=== PATIENT | male | born 1995 | race African-American/Black ===

== ENCOUNTER 2024-07-22 15:18 | Emergency (ER) | payer OTHER, BC, SELFPAY ==
[2024-07-22 15:41] VITALS: BP 116/66; PULSE 51; RESP 16; TEMP 36.8; O2SAT 100
--- NOTE | 2024-07-22 15:59 | ED.BURNSMOKE ---
HPI - Burn/Smoke Inhalation General Chief complaint: Burn/Smoke Inhalation Stated complaint: Burn/Right Arm Time Seen by Provider: 07/22/24 15:59 Source: patient Mode of arrival: ambulatory Limitations: no limitations History of Present Illness HPI Narrative: 28 yo M presents with burn wound to R forearm. Burnt himself last night while at work. Works at [employer] and burnt himself with miah cheese. blisters intact. Tetanus UTD. CMS intact. All systems reviewed and negative except as noted above. Related Data Allergies Allergy/AdvReac Type Severity Reaction Status Date / Time No Known Allergies Allergy Unverified 10/13/17 17:35 Review of Systems Review of Systems: CONSTITUTIONAL: Denies fever, chills, or sweats. EYES: Denies visual changes, redness, or discharge. ENT: Denies rhinorrhea, congestion, sore throat, or otalgia. CARDIOVASCULAR: Denies chest pain, palpitations, or edema. RESPIRATORY: Denies cough or dyspnea. GASTROINTESTINAL: Denies abdominal pain, nausea, vomiting, or diarrhea. GENITOURINARY: Denies dysuria or hematuria. SKIN: Denies rash or itching. reports burn wound to R forearm MUSCULOSKELETAL: Denies back pain, joint pain, or myalgia. NEUROLOGIC: Denies headache, numbness, or weakness. PSYCHIATRIC: Denies anxiety or depression. All other systems reviewed are negative, except as documented in HPI. PMFSH Comments At time of signature, agree with nursing past medical, surgical, social and family history. There is no relevant family history pertinent to the presenting complaint. Exam Narrative: GENERAL: This is a well-nourished, well-developed patient, in no apparent distress. HEAD: normocephalic, atraumatic. EYES: PERRL. Sclera clear/white. Vision is grossly intact. EARS: External ears normal NOSE: External nose normal NECK: Neck supple, non-tender without lymphadenopathy, masses or thyromegaly. CARDIOVASCULAR: Regular rate and rhythm without murmurs, gallops, or rubs. RESPIRATORY: Clear to auscultation. Breath sounds equal bilaterally. No wheezes, rales, or rhonchi. SKIN: warm, Dry, intact with no suspicious lesions or rash, good texture and turgor. second degree burn to R forearm approx. 6 x 4cm blister NEURO: awake, alert, and oriented to person, place and time. There were no obvious focal neurologic abnormalities. EXTREMITIES: No joint tenderness, effusion, or edema noted. Course Course Level of Care: Express Care Visit Vital Signs Vital signs: Vital Signs Temperature 36.8 C 07/22/24 15:41 Pulse Rate 51 L 07/22/24 15:41 Respiratory Rate 16 07/22/24 15:41 Blood Pressure 116/66 07/22/24 15:41 Pulse Oximetry 100 07/22/24 15:41 Oxygen Delivery Room Air 07/22/24 15:41 Temperature 36.8 C 07/22/24 15:41 Pulse Rate 51 L 07/22/24 15:41 Respiratory Rate 16 07/22/24 15:41 Blood Pressure 116/66 07/22/24 15:41 Pulse Oximetry 100 07/22/24 15:41 Oxygen Delivery Room Air 07/22/24 15:41 Reviewed MDM - Burn/Smoke Inhalation MDM Narrative Medical decision making narrative: Silvadene and dressing applied by RN. Tetanus is up-to-date. [facility] intact. Please be advised this is a medical document. It is intended for nbyx-yy-wvzu communication. It is written in medical language and may contain unfamiliar abbreviations or verbiage. Medical documents are intended to carry relevant information, facts as evident, and the clinical opinion of the practitioner at the time of the encounter. This report may have been done utilizing a voice recognition system. Attempts have been made to correct errors. However, there may be uncorrected grammatical, spelling, and recognition errors present. The file time of this note does not necessarily represent the time of service. Discharge Plan Discharge Clinical Impression: Burn of second degree of right forearm, initial encounter Patient Disposition: Home Condition: Stable Instructions: Antibiotic Form, Second-Degree Burn (ED) Additional Instructions: Apply silvadene cream as prescribed. Take ibuprofen or tylenol every 6 to 8 hours as needed for pain. If you have signs of infection such as redness, warmth, swelling, drainage, see your doctor. Patient Language: Thai Follow-up/Referrals: PHYSICIAN,MANAGER TRADE [Primary Care Provider] - Time of Disposition: 16:04
[2024-07-22] MEDS: SILVER SULFADIAZINE 1% CR 50 GM JAR (*BKC) 1 APPLIC TOPICAL (16:10)
--- OUTSIDE RECORDS SUMMARY | 2024-07-22 17:16 | XMS_ITS | Clinical Summary ---
Author Organization [facility] Address [address] [place] [address] Care Team Providers Care Meter And Service Line Inspector Name Role Phone No, Physician Primary Care Provider [phone] Allergies No known active allergies Medications No known medications Immunizations Immunization Administration Dates Next Due Tdap 12/13/2023 Social History Tobacco Use Types Packs/Day Years Used Date Smoking Tobacco: Former Cigarettes Smokeless Tobacco: Current Chew Tobacco Cessation:Ready to Q uit: Not Asked; Counseling Given: Not Answered Alcohol Use Standard Drinks/Week Comments Yes 0 (1 standard drink = 0.6 oz pur e alcohol) occassional Personal Safety Answer Date Recorded Have you ever been in or are you currently in a harmful physical or emotional relationship or is someone making you feel afraid or unsafe? 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 Gender Identity Not on file Sexual Orientation Not on file Obstetrics History Last Filed Vital Signs Vital Sign Reading Time Taken Comments Blood Pressure 126/86 12/13/2023 1:03 PM CDT Pulse 65 12/13/2023 1:03 PM CDT Temperature 37.2 C (98.9 F) 12/13/2023 1:03 PM CDT Respiratory Rate 16 12/13/2023 1:03 PM CDT Oxygen Saturation 99% 12/13/2023 1:03 PM CDT Inhaled Oxygen Concentration - - Weight 56.7 kg (125 lb) 12/13/2023 1:03 PM CDT Height 180.3 cm (5' 11 ) 12/13/2023 1:03 PM CDT Body Mass Index 17.43 12/13/2023 1:03 PM CDT Plan of Treatment Health Maintenance Due Date Last Done Comments Depression Screening 1994 Hepatitis C Screening 1994 Varicella Vaccines (1 of 2 - 13+ 2-dose series) 11/17/2007 Hepatitis B Screening 2012 Regular Well Visit/Exam 18-64 2012 Influenza Vaccine (#1) 2023 DTaP/Tdap/Td Vaccine (2 - Td or Tdap) 12/12/2033 12/13/2023 HPV Vaccines Aged Out No longer eligi ble based on patient's age to complete this topic Pneumococcal vaccine <65 Aged Out No longer eligible based on patient's age to complete this topic Insurance [employer] [place] [address] [place] [address] [employer] O[employer] Member Subscriber Plan / Payer (Ef fective 2023-Present) Name:Pancho Taylor Relation to Subscriber:Self Name:Pancho Taylor Payer ID:[id number] (NAIC) Type: SHAHRZAD Address: [facility] [id number] [place] [id number] Care Teams Meter And Service Line Inspector Relationship Specialty Start Date End Date No, Physician PCP - General 09/15/18
--- OUTSIDE RECORDS SUMMARY | 2024-07-22 17:16 | XMS_ITS | Referral Summary ---
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
--- OUTSIDE RECORDS SUMMARY | 2024-07-22 17:16 | XMS_ITS | Clinical Summary ---
Author Organization [facility] Address [address] [place] [address] Care Team Providers Care Lug Loader Name Role Phone Unavailable Primary Care Provider Unavailabl e Source Comments [facility],non-owned Affiliates and Associated Physician Practices is amultiple site organization consisting of ambulatory clinics and hospital sitesin [place], [place], [place] and [place]. This disclosure is being madepursuant to the Care Everywhere program and may not contain all information available regarding this patient. Last updated 17.[facility] Allergies No known active allergies Medications * Be aware that medications may not be up to date on this document. Alwaysverify current medications with the patient. clindamycin (Cleocin) 300 MG capsule Take 1 (one) capsule by mouth every 8 hours Active ciprofloxacin (Cipro) 500 MG tablet Take 1 (one) tablet by mouth 2 times daily Active HYDROcodone-ac etaminophen ([place]) 5-325 MG tabletIndicati ons:Post-op pain Take 1 (one) tablet by mouth every 6 hours as needed for Pain 28 tablet 4 Active acetaminophen (Tylenol) 500 MG tablet Take 1 (one) tablet by mouth every 6 hours as needed for Pain Maximum allowable Acetaminophen amount = 4 Grams (4000 mg) / 24 hours. 4 Active Social History Tobacco Use Types Packs/Day Years Used Date Smoking Tobacco: Former Cigarettes 1 10 0 12/10/2011 - 12/09/2021 Smokeless Tobacco: Never Alcohol Use Standard Drinks/Week Comments Yes 0 (1 standard drink = 0.6 oz pur e alcohol) occasionally AUDIT-C Answer Date Recorded Q1: How often do you have a drink containing alc ohol? Monthly or less 12/18/2023 Q2: How many drinks containi ng alcohol do you have on a typical day when you are drinking? 1 or 2 12/18/2023 Q3: How often do you have si x or more drinks on one occasion? 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 Gender Identity Not on file Sexual Orientation Not on file Last Filed Vital Signs Vital Sign Reading Time Taken Comments Blood Pressure 107/70 12/18/2023 1:26 PM CDT Pulse 52 12/18/2023 1:12 PM CDT Temperature 36.3 C (97.3 F) 12/18/2023 1:26 PM CDT Respiratory Rate 18 12/18/2023 1:26 PM CDT Oxygen Saturation 100% 12/18/2023 1:26 PM CDT Inhaled Oxygen Concentration - - Weight 55.3 kg (122 lb) 12/18/2023 10:06 AM CDT Height 180.3 cm (5' 11 ) 12/18/2023 10:06 AM CDT Body Mass Index 17.02 12/18/2023 10:06 AM CDT Plan of Treatment Health Maintenance Due Date Last Done Comments HIV SCREENING 2009 HEPATITIS C SCREENING 11/11/2012 DTAP/TDAP/TD VACCINES (1 - Tdap) 2013 HEPATITIS B VACCINE (1 of 3 - 19+ 3-dose series) 2013 COVID-19 VACCINE ( - 2023-2 5 season) 2023 DEPRESSION SCREENING 04/10/2024 INFLUENZA VACCINE (Season Ended) 2024 ZOSTER VACCINE (1 of 2) 2044 HIB VACCINE Aged Out No longer eligi ble based on patient's age to complete this topic HPV VACCINE Aged Out No longer eligi ble based on patient's age to complete this topic MENINGOCOCCAL (Group B) VACC INE SHARED DECISION-MAKING Aged Out No longer eligibl e based on patient's age to complete this topic MENINGOCOCCAL GROUPS A/C/Y/W VACCINE Aged Out No longer eligible b ased on patient's age to complete this topic PNEUMOCOCCAL VACCINE Aged Out No long er eligible based on patient's age to complete this topic Insurance CIGNA CIGNA ANTH
== END 2024-07-22 16:19 | disposition home or self-care (01) ==
PROVIDERS: Emergency Provider Nurse Practitioner Family
DX: T22.211A Burn of second degree of right forearm, initial encounter (principal); T31.0 Burns involving less than 10% of body surface; X10.1XXA Contact with hot food, initial encounter
CPT/HCPCS: 99213; A9270; G0463

== ENCOUNTER 2024-09-25 18:51 | Emergency (ER) | payer BC, SELFPAY ==
--- OUTSIDE RECORDS SUMMARY | 2024-09-25 18:52 | XMS_ITS | Clinical Summary ---
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 Gender Identity Not on file Sexual Orientation [...] 1:03 PM CDT Height 180.3 cm (5' 11) 12/13/2023 1:03 PM CDT Body Mass Index 17.43 12/13/2023 1:03 PM CDT Plan of Treatment Health Maintenance Due Date Last Done Comments Depression Screening 1994 Hepatitis C Screening 1994 Varicella Vaccines (1 of 2 - 13+ 2-dose series) 11/17/2007 Hepatitis B Screening 2012 Regular Well Visit/Exam 18-64 2012 Influenza Vaccine (Season Ended) 2024 DTaP/Tdap/Td Vaccine (2 - Td or Tdap) 12/12/2033 12/13/2023 HPV Vaccines Aged Out No longer eligi ble based on patient's age to complete this topic Pneumococcal vaccine <65 Aged Out No longer eligible based on patient's age to complete this topic Insurance [employer] [facility] Address: [address] [place], [place] [id number] [place] [address] [employer] OOS Member Subscriber Plan / Payer (Ef fective 2023-Present) Name:Pancho Taylor Relation to Subscriber:Self Name:Pancho Taylor Payer ID:[id number] (NAIC) Type: SHAHRZAD Address: [facility] [id number] [place] [id number] Care Teams Real Estate Subagent Relationship Specialty Start Date End Date No, Physician PCP - General 09/15/18
--- OUTSIDE RECORDS SUMMARY | 2024-09-25 18:52 | XMS_ITS | Referral Summary ---
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
--- OUTSIDE RECORDS SUMMARY | 2024-09-25 18:53 | XMS_ITS | Clinical Summary ---
Author Organization [facility] Address [address] [place] [address] Care Team Providers Care Paint Roller Winder Name Role Phone Unavailable Primary Care Provider Unavailabl e Source Comments [facility],non-owned Affiliates and Associated Physician Practices is amultiple site organization consisting of ambulatory clinics and hospital sitesin [place], [place], [place] and [place]. This disclosure is being madepursuant to the Care Everywhere program and may not contain all information available regarding this patient. Last updated 17.[employer] [facility] Allergies No known active allergies Medications * Be aware that medications may not be up to date on this document. Alwaysverify current medications with the patient. 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
[2024-09-25 19:03] VITALS: BP 123/81; PULSE 63; RESP 18; TEMP 36.5; O2SAT 100
--- NOTE | 2024-09-25 19:22 | ED_ITS ---
HPI - Headache General Chief Complaint: Headache Stated Complaint: Headache Time Seen by Provider: 09/25/24 19:08 Source: patient and RN notes reviewed Mode of arrival: ambulatory Limitations: no limitations History of Present Illness HPI Narrative: Patient presents today with a 3 day history of throbbing global headache that has been constant since onset. Currently rates his pain 6/10. He has tried 1 dose of, ?liquid Tylenol and ?without improvement. Denies any additional associated symptoms to include nausea, vomiting, dizziness, vision changes, photophobia, phonophobia. No history of migraines or chronic headaches. This is not his worst headache ever Related Data Home Medications ?Medication ?Instructions ?Recorded ?Confirmed ?Last Taken ?Type No Home Medications 09/25/24 09/25/24 Unknown History Allergies Allergy/AdvReac Type Severity Reaction Status Date / Time No Known Allergies Allergy Verified 09/25/24 19:02 Review of Systems Review of Systems: CONSTITUTIONAL: Denies body aches, fever, chills, or sweats. EYES: Denies visual changes, redness, or discharge. ENT: Denies rhinorrhea, congestion, sore throat, or otalgia. CARDIOVASCULAR: Denies chest pain, palpitations, or edema. RESPIRATORY: Denies cough or dyspnea. GASTROINTESTINAL: Denies abdominal pain, nausea, vomiting, or diarrhea. GENITOURINARY: Denies dysuria or hematuria. SKIN: Denies rash, itching, or wounds. MUSCULOSKELETAL: Denies back pain, joint pain, or myalgia. NEUROLOGIC: Denies numbness, tingling, or weakness.+ headache PSYCH: Denies depression or anxiety. PMFSH Comments At time of signature, I have reviewed and agree with nursing past medical, surgical, social and family history unless otherwise noted. Please see nursing chart for further information. There is no relevant family history pertinent to the presenting complaint Exam Narrative: GENERAL: Well-appearing, well-nourished, and in no acute distress. HEAD: Normocephalic, atraumatic. EYES: EOMI. PERRL. No redness or drainage. Conjunctivae normal. ENT: Mucous membranes pink and moist. NECK: Normal AROM. CHEST: No respiratory distress. EXTREMITIES: Normal range of motion. No edema. SKIN: Warm, dry, no rash. Capillary refill normal. Normal skin turgor. NEURO: No focal deficits. Alert and oriented x3. Gait steady. PSYCH: Normal affect. No signs of depression or anxiety. Course Course Level of Care: Express Care Visit Vital Signs Vital signs: Vital Signs Temperature 97.7 F 09/25/24 19:03 Pulse Rate 63 09/25/24 19:03 Respiratory Rate 18 09/25/24 19:03 Blood Pressure 123/81 09/25/24 19:03 Pulse Oximetry 100 09/25/24 19:03 Oxygen Delivery Room Air 09/25/24 19:03 Temperature 97.7 F 09/25/24 19:03 Pulse Rate 63 09/25/24 19:03 Respiratory Rate 18 09/25/24 19:03 Blood Pressure 123/81 09/25/24 19:03 Pulse Oximetry 100 09/25/24 19:03 Oxygen Delivery Room Air 09/25/24 19:03 Reviewed MDM - Headache MDM Narrative Medical decision making narrative: Offered patient injection of toradol and benadryl. Patient declined injections, but accepts prescription for toradol. Instructed to take benadryl at home. Anticipatory guidance and ED precautions given. Differential Diagnosis Differential diagnosis: Likely migraine, tension headache and other Critical Care Time Critical Care Time Critical Care Time: No Discharge Plan Discharge Clinical Impression: Headache Qualifiers: Headache type: unspecified Headache chronicity pattern: acute headache Intractability: intractable Qualified Code(s): R51.9 - Headache, unspecified Patient Disposition: Home Condition: Stable Instructions: Acute Headache (DC) Additional Instructions: Take the toradol as prescribed with [address] within 6 hours of taking the Benadryl as it can make you drowsy. As discussed, if symptoms persist follow-up with your PCP. If symptoms worsen significantly including worsening pain, nausea or vomiting, fever, light or sound sensitivity, dizziness, please go to the ER immediately for further evaluation. Your blood pressure was elevated above 120/80 today at Urgent Care. This puts you above the threshold for follow up. Please schedule a followup visit with yo personal physician as soon as possible, for further evaluation and treatment. Even blood pressure exceeding 120/80 may indicate pre-hypertension. Patient Language: Kazakh Prescriptions: New ketorolac 10 mg tablet 10 mg PO Q6H PRN (Reason: pain) 5 Days Qty: 20 0RF No Action No Home Medications Follow-up/Referrals: PHYSICIAN,CARDIOVASCULAR TECHNOLOGIST [Primary Care Provider] - Stand Alone Forms: Work/School Release IP Time of Disposition: 19:21
== END 2024-09-25 19:26 | disposition home or self-care (01) ==
PROVIDERS: Emergency Provider Nurse Practitioner
DX: R51.9 Headache, unspecified (principal)
CPT/HCPCS: 99213; G0463